=== PATIENT | female | born 1945 | race Caucasian/White ===

== ENCOUNTER 2019-09-06 06:35 | Day surgery (SDC) | payer OTHER ==
[2019-09-05 16:19] VITALS: BMI 27.1
[~2019-09-06 06:35] MED LIST: LACTATED RINGERS SOLUTION 1,000 ML IV SCH; ONDANSETRON 4 MG/2 ML VIAL IVPUSH PRN; oxyCODONE HCL 5 MG TABLET PO PRN
[2019-09-06] MEDS ORDERED: PROPOFOL 20 ML ONE (08:34)
[2019-09-06] MEDS ORDERED: LIDOCAINE 1%/EPI 1:100000 (20 ML MULTI DOSE VIAL) INF ONE ×3 (08:37→09:12)
[2019-09-06] MEDS ORDERED: KETOROLAC TROMETHAMINE 30 MG/1 ML VIAL ONE (08:38)
[2019-09-06] MEDS ORDERED: ceFAZolin SODIUM 1 GM VIAL ONE (08:38)
[2019-09-06] MEDS ORDERED: LIDOCAINE HCL/PF 2% SDV 5ML VIAL ONE (08:38)
[2019-09-06] MEDS ORDERED: DEXAMETHASONE SOD PHOSPHATE 4 MG/1 ML VIAL ONE (08:38)
[2019-09-06] MEDS ORDERED: SODIUM CHLORIDE 0.9% P/F 10 ML VIAL IJ ONE (08:38)
--- NOTE | 2019-09-06 08:42 | HP ---
History & Physical Update - History History: No Change - Physical Physical: No Change - Assessment Assessment: No Change - Plan Plan: No Change
[2019-09-06] MEDS ORDERED: MIDAZOLAM HCL 2 MG/2 ML SINGLE DOSE VIAL ONE (08:59)
[2019-09-06] MEDS ORDERED: ceFAZolin 2 GRAM PREMIX BAG IVPB ONE (09:05)
[2019-09-06 12:46] VITALS: BP 120/81; PULSE 83; TEMP 97.3
--- NOTE | 2019-09-07 21:58 | OP ---
DATE OF OPERATION: 09/06/2019 PROCEDURE: Left axillary lymph node incisional biopsy. PREOPERATIVE DIAGNOSIS: Left axillary lymphadenopathy, rule out lymphoma. POSTOPERATIVE DIAGNOSIS: Left axillary lymphadenopathy, rule out lymphoma. SURGEON: Monroe Hooks MD ANESTHESIA: Local with sedation. FINDINGS AND PROCEDURE: This is a 74-year-old female who presents with enlarged left axillary lymph node which was about [address] scan. On physical exam, patient has a movable, doughy mass of the left axilla, which was nontender with well-defined borders. So, patient was advised an incisional biopsy due to the large size of the lymph node. Consent was obtained after discussing the risks, benefits, and alternatives to the procedure. Patient was brought to the operating room and placed in supine position with the left arm abducted 90 degrees and a roll under the left shoulder. Intravenous sedation was given by the anesthesia team. The operative site was prepped and draped in the usual sterile fashion using lidocaine 1% with epinephrine. Local anesthesia was administered to the proposed incision site. A 3-cm skin crease incision over the mass at the left axilla was made using scalpel blade number 15 where dissection occurred down to the subcutaneous tissue. Further dissection using Bovie cautery was done until the lymph node was encountered and visualized. An aggregate size of about 2 x 1 cm of the lymph node was excised using scalpel blade number 15. Hemostasis was achieved using Bovie cautery. The specimen was then sent fresh to the laboratory for histopathologic examination. The wound was closed with 1 tocrjd-un-[id number] 3-0 suture for the capsule of the lymph node and interrupted Polysorb 3-0 suture for the dermis. The skin was opposed with continuous Biosyn 4-0 suture for the subcuticular layer. The wound closure was reinforced with Steri-Strips. The wound was covered with sterile dressing. Patient was transferred to the postanesthesia care unit in satisfactory condition. Estimated blood loss was about 1 mL. Wound class clean. The patient received 2 g of Ancef prior to the start of the procedure. MONROE HOOKS M.D. [id number]
--- NOTE | 2019-09-18 16:42 | PATH ---
Surgical Pathology Report Patient Name: LANCE ORDONEZ [facility]. Rec. #: [id number] /Age/Gender: 1945 (Age: 74) / F Account: [id number] Location: [facility] Taken: 09/06/2019 Received: 09/06/2019 Reported: 09/18/2019 Physicians: Monroe Hooks M.D. Specimen(s) Received LEFT AXILLARY LYMPH NODE Clinical History Left axillary lymph node Final Diagnosis Surgical pathology report with immunohistochemistry analysis performed at [place], [place] shows the following: INTERPRETATION: LYMPH NODE, AXILLA, EXCISIONAL BIOPSY ([id number]): High grade B cell lymphoma, see comment. Comment: The nelly architecture is completely effaced by a diffuse lymphoid infiltrate composed of medium to large sized cells. Immunostains show the cells to be positive for CD20, PAX-5, CD10, BCL-2, BCL-6, IgD and lambda but negative for Mum-1, CD30 and cyclin d1. CD21 stain shows largely absence of follicular dendritic cells. Ki67 shows a approximately 60% proliferative index. Approximately 40% of the neoplastic cells are positive for CMYC. The findings correlate with flow cytometric analysis and are consistent with a high grade B cell lymphoma. Additional FISH studies for BCL2, BCL6 and CMYC rearrangements will be performed for further characterization and an addendum will follow. ADDENDUM: FISH studies were positive for a rearrangement of MYC (58% of cells) and negative for BCL2 and BCL6 rearrangements and seven and eight copies of BCL2 were observed (see separate report). 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 Clinicopathologic correlation is recommended COMPREHENSIVE CASE STUDY performed at [place], [place] shows the following: Summary interpretation LYMPH NODE, AXILLA, EXCISIONAL BIOPSY ([id number]) - Diffuse large B cell lymphoma, GCB subtype. - FISH: 1. Positive for a rearrangement involving MYC (58.0% of cells). 2. Negative for a rearrangement involving BCL2. Seven and eight copies of BCL2 were observed in19.0% and 70.5% of cells, respectively. The extra copies of BCL2 indicate an overexpression of this gene which can be seen in some follicular lymphomas. 3. Negative for a rearrangement involving BCL6. This case was sent [place], [place] ([id number]) for hematopathology consultation. The diagnosis above reflects Dr. Aida Zarate's opinion. FLOW CYTOMETRY performed and interpreted at [facility] ([id number]) shows the following: Interpretation: LYMPH NODE, LEFT AXILLA, BIOPSY: The immunophenotypic findings represent B-cell lymphoma with follicle center B-cell immunophenotype (see comment). Comment: Correlation with morphologic examination of the tissue section as well as the pending FISH study for aggressive B-cell panel is recommended and necessary for a complete evaluation and adequate classification Phenotype: A monoclonal lambda, CD10 positive B-cell population is present (~90% of gated cells). The T-cells (6.0% of gated cells) show no pathak T-cell antigenic deletion. CD4:CD8 ratio is 2.2:1. CD13/CD33 positive cells represent 1.2% of the gated cells. No significant CD45 negative cells is identified See [facility] report for additional details. Fluorescence In-Situ Hybridization (FISH) performed and interpreted at [facility], [place], [place] shows the following: Interpretation: Aggressive B-cell lymphoma panel: 1. Positive for a rearrangement involving MYC (58.0% of cells). MYC rearrangements are characteristic of Burkitt lymphoma, however, they can also be seen infrequently in other B-cell lymphomas. 2. Negative for a rearrangement involving BCL2. Seven and eight copies of BCL2 were observed in 19.0% and 70.5% of cells, respectively. The extra copies of BCL2 indicate an overexpression of this gene which can be seen in some follicular lymphomas. 3. Negative for a rearrangement involving BCL6. Correlation with clinicopathological findings and other laboratory tests is indicated. See [facility] (Specimen #: [id number]) for additional details. Electronically Signed Radha Easley M.D. Addendum Reported: 09/23/[address] Hooks's office confirmed receipt of the faxed report, 09/19/2019. Radha Easley M.D. Gross Description Received fresh labeled "axillary lymph node left," is a 1.5 x 1.0 x 0.3 cm collado portion of lymph node as well as 2 collado soft tissue fragments measuring 0.5 and 0.7 cm in greatest dimension, consistent with additional portions of lymph node. A fulfillment representative portion is placed in RPMI solution and sent for flow cytometry. The remainder of the specimen is entirely submitted in one cassette. 09/06/2019 [facility]09/06/2019
== END 2019-09-06 12:50 | disposition home or self-care (01) ==
LOC: JASU-SURG 06:35
PROVIDERS: ATTEND Surgery
PROC: 07B60ZX Excision of Left Axillary Lymphatic, Open Approach, Diagnostic (ICD-10-PCS; principal; 2019-09-06 08:30)
DX: C85.14 Unspecified B-cell lymphoma, lymph nodes of axilla and upper limb (principal)
CPT/HCPCS: 88305-TC; 94760